=== PATIENT | female | born 1990 | race Caucasian/White ===

== ENCOUNTER 2016-08-13 02:32 | Emergency (ER) | payer BC, OTHER ==
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
[2016-08-13 02:51] LABS: Hematocrit 35.6 % (37.0-47.0); Hemoglobin 12.2 gm/dL (12.5-16.0); Mean Cell Volume 88.6 fl (78-100); Mean Corpuscular Hemoglobin 30.3 pg (27-31); Mean Corpuscular Hgb Conc 34.3 g/dl (32-36); Mean Platelet Volume 11.1 fl (6.0-9.5); Platelet Count 232 K/mm3 (150-450); Red Blood Count 4.02 M/mm3 (4.2-5.4); Red Cell Distribution Width 12.5 % (11.5-14.0); White Blood Count 9.6 K/mm3 (4.0-10.5)
[2016-08-13 03:00] LABS: Albumin * 2.9 gm/dl (3.4-5.0); Anion Gap 14.5 mmol/L (6.8-13.8); BUN/Creatinine Ratio 17.2 (9.0-21.6); Bilirubin, Total 0.2 mg/dL (0.0-1.1); Ca. Corrected For Albumin 9.4 mg/dL (8.4-10.2); Calcium * 8.8 mg/dL (7.9-10.9); Carbon Dioxide 24.1 mmol/L (24-32.6); Potassium 3.6 mmol/L (3.4-4.6); Total Protein 6.9 gm/dL (6.2-8.2)
[2016-08-13 03:59] LABS: Urine Bilirubin Negative (NEGATIVE); Urine Blood Negative /ul (NEGATIVE); Urine Ketone Negative (NEGATIVE); Urine Nitrite Negative (NEGATIVE); Urine Protein Negative (NEGATIVE); Urine Specific Gravity <=1.005 SP.GR. (1.005-1.010); Urine Urobilinogen Normal (NORMAL)
[2016-08-13 04:18] LABS: Urine Appearance Clear; Urine Bacteria 1+; Urine Color Pale Yellow; Urine RBC None Seen /hpf (0-5); Urine WBC None Seen /hpf (0-5)
--- OUTSIDE RECORDS SUMMARY | 2016-08-13 04:46 | XMS REPORT | Continuity of Care Document ---
:1990 Author Organization [facility] ([facility]) Address [place] [address] Phone [phone] Care Team Providers Name Role Phone Mitzi Becerra Primary Care Provider [phone] Source Comments This disclosure is being made pursuant to the Care Everywhere program, applicable federal and state laws, and may not contain all informaitonavailable regarding this patient.[facility] ([facility]) Active Allergies and Adverse Reactions Allergen Noted Date Severity Reactions Comments Amoxicillin 07/13/2014 Nausea & Vomiting Cotrim Double-Strength 07/13/2014 Nausea & Vomiting Lactose 07/13/2014 Nausea & Vomiting Current Medications Prescription Sig. Disp. Refills Start Date End Date Status norethindrone-ethinyl Take 1 Tab by Active estradiol triphasic (NECON mouth daily. ) tablet Active Problems Not on file Social History Tobacco Use Types Packs/Day Years Used Date Never Smoker Smokeless Tobacco: Never Used Alcohol Use Drinks/Week oz/Week Comments Yes 1 Glasses of wine Last Filed Vital Signs Vital Sign Reading Time Taken Blood Pressure 119/68 07/13/2014 10:19 AM CDT Pulse 76 07/13/2014 10:19 AM CDT Temperature - - Respiratory Rate - - Height 1.676 m (5' 5.98") 07/13/2014 10:19 AM CDT Weight 91.6 kg (201 lb 15.1 oz) 07/13/2014 10:19 AM CDT Body Mass Index 32.61 07/13/2014 10:19 AM CDT Oxygen Saturation - - Plan of Care Health Maintenance Due Date Last Done Comments Hepatitis B Vaccine (1 of 3 - Primary Series) 1990 HPV Vaccine (1 of 3 - Female/Unknown 3 Dose Series) 2000 Tdap Vaccine 2000 Cervical Cancer Screening 07/28/2007 Lipid Disorder Screening 07/28/2007 MMR Vaccine 07/28/2007 Td Vaccine 07/28/2007 Varicella Vaccine (1 of 2 - Adult - No Evidence of 07/28/2007 Immunity) Influenza Vaccine: Seasonal (#1) 10/18/2015 Results from Last 3 Months Not on file
[2016-08-13 04:53] VITALS: BP 131/55
== END 2016-08-13 04:51 | disposition home or self-care (01) ==
LOC: ER 02:32
DX: R07.89 Other chest pain (principal); M79.652 Pain in left thigh; T14.8 Other injury of unspecified body region; V49.40XA Driver injured in collision with unspecified motor vehicles in traffic accident, initial encounter; Y92.410 Unspecified street and highway as the place of occurrence of the external cause

== ENCOUNTER 2019-03-15 11:06 | Inpatient (IN) ==
[2019-03-15] MEDS ORDERED: RINGER'S SOLUTION,LACTATED 1,000 ML IV ONE (12:00)
[2019-03-15] MEDS ORDERED: ONDANSETRON HCL/PF 2 MG/ML VIAL ONE (13:16)
[2019-03-15] MEDS ORDERED: NEOSTIGMINE METHYLSULFATE 1 MG/ML VIAL ONE (13:16)
[2019-03-15] MEDS ORDERED: MIDAZOLAM HCL/PF 5 MG/ML VIAL ONE (13:16)
[2019-03-15] MEDS ORDERED: fentaNYL CITRATE/PF 50 MCG/ML AMPUL ONE (13:16)
[2019-03-15] MEDS ORDERED: PROPOFOL VIAL IV ONE (13:17)
[2019-03-15] MEDS ORDERED: KETOROLAC TROMETHAMINE 30 MG/ML VIAL ONE (13:17)
[2019-03-15] MEDS ORDERED: BUPIVACAINE HCL/EPINEPHRINE 50 ML VIAL ONE (13:17)
[2019-03-15] MEDS ORDERED: GLYCOPYRROLATE 0.2 MG/ML VIAL ONE (13:17)
[2019-03-15] MEDS ORDERED: RINGER'S SOLUTION,LACTATED 1,000 ML IV PRN (13:20)
[2019-03-15] MEDS ORDERED: DEXTROSE 5% IV ONE ×2 (13:20)
[2019-03-15] MEDS ORDERED: WATER IV ONE ×2 (13:20)
[2019-03-15] MEDS ORDERED: CLINDAMYCIN PHOSPHATE 900 MG in DEXTROSE 5 % IN WATER 100 ML IV ONE ×2 (13:20)
[2019-03-15] MEDS ORDERED: GENTAMICIN SULFATE IV ONE ×2 (13:20)
[2019-03-15] MEDS ORDERED: OXYTOCIN 20 UNITS in RINGER'S SOLUTION,LACTATED 1,000 ML IV ONE (13:20)
[2019-03-15] MEDS ORDERED: diphenhydrAMINE HCL 25 MG CAPSULE PO PRN (13:25)
[2019-03-15] MEDS ORDERED: HYDROcodone/ACETAMINOPHEN 1 EACH TABLET PO PRN (13:25)
[2019-03-15] MEDS ORDERED: ONDANSETRON HCL/PF 2 MG/ML VIAL IV PRN (13:25)
[2019-03-15] MEDS ORDERED: SENNOSIDES 8.6 MG TABLET PO PRN (13:25)
[2019-03-15] MEDS ORDERED: BISACODYL 10 MG SUPP.RECT RC PRN (13:25)
[2019-03-15] MEDS ORDERED: KETOROLAC TROMETHAMINE 30 MG/ML VIAL IV PRN (13:25)
--- NOTE | 2019-03-15 13:26 | ANES ---
Anesthesia Pre Procedure Eval Vitals/Labs: Last Vital Signs Temp 36.9 C 03/15/19 12:01 Pulse 77 03/15/19 12:01 Resp 18 03/15/19 12:01 BP 122/73 03/15/19 12:01 Pulse Ox 99 03/15/19 12:01 HOME MEDICATIONS STY15-SE 400 mcg-om3 35 mg-dha 25 mg-epa 5 mg-fish oil chewable tablet 2 tab PO DAILY tab 10/08/18 [Last Taken Unknown] ascorbate calcium (vitamin C) 500 mg tablet 500 mg PO DAILY 11/20/18 [Last Taken Unknown] aspirin 81 mg tablet,delayed release 81 mg PO DAILY 11/20/18 [Last Taken Unk nown] magnesium oxide 500 mg tablet 500 mg PO DAILY 11/20/18 [Last Taken Unknown] potassium gluconate 595 mg (99 mg) tablet 595 mg PO DAILY 11/20/18 [Last Taken Unknown] calcium carbonate 500 mg calcium (1,250 mg) tablet 500 mg PO DAILY 12/31/18 [Last Taken Unknown] ferrous sulfate 325 mg (65 mg iron) tablet 325 mg PO DAILY #30 tab 01/01/19 [Last Taken Unknown] Allergies/Adverse Reactions: Allergies Allergy/AdvReac Type Severity Reaction Status Date / Time erythromycin base Allergy Hives Verified 03/15/19 12:01 red dye Allergy Rash Verified 03/15/19 12:01 amoxicillin AdvReac N/V Verified 03/15/19 12:01 latex AdvReac Verified 03/15/19 12:01 - Planned Procedure Planned Procedure: Repeat C/S Medication List Reviewed:: Yes Allergies Verified: Yes Medical History (Last Reviewed 03/15/19 @ 13:25 by Fercho Jim CRNA) Class 2 obesity due to excess calories with body mass index (BMI) of 38.0 to 38.9 in adult (Chronic) Anxiety and depression (Inactive) no meds History of pre-eclampsia (Chronic) Severe, 37 wks Anemia Onset Date: 12/31/18 w/ Body piercing Onset Date: Unknown Eczema Onset Date: Unknown seasonal Obesity Onset Date: Unknown Tattoos Onset Date: Unknown Wears glasses Onset Date: Unknown & contacts Anxiety Onset Date: Unknown No medication since [facility] Depression Onset Date: Unknown No medication since 07/2017 Elective Onset Date: ~2010 x2 History of pre-eclampsia Onset Date: ~01/2017 Post depression Onset Date: ~03/2017 Shingles Onset Date: ~2008 Spontaneous Onset Date: Unknown Surgical History (Last Reviewed 03/15/19 @ 13:25 by Fercho Jim CRNA) Previous section (Chronic) x1, Arrest of descent History of dilation and curettage Onset Date: ~2010 x2 with elective - d/t hemorrhaging History of laparoscopic appendectomy Onset Date: 01/02/15 Previous section Onset Date: 01/23/17 Failed induction d/t failure to progress [place] teeth extracted Onset Date: ~2011 Family History (Last Reviewed 03/15/19 @ 13:25 by Fercho Jim CRNA) Mother Cancer Breast Father Diabetes CHF (congestive heart failure) Hypertension Hyperlipemia Grandmother Cancer Skin Glaucoma Grandfather COPD (chronic obstructive pulmonary disease) Glaucoma Grandmother CVA (cerebral vascular accident) Myocardial infarction CAD (coronary artery disease) - Family Anesthesia History Family History:: no untoward family reactions to anesthesia, no familial bleeding tendencies, no family history of clotting disorders, no family history of premature - Airway/Neck/Teeth Within Normal Limits:: Yes Teeth Condition: intact Mallampatti Score: 2 Thyromental (T-M) distance: > 6 cm Mandibulo Hyoid distance: > 3 cm - Respiratory Respiratory Physical: lungs clear Discussed smoking cessation including day of surgery: No Sleep Apnea currently treated: No Sleep Apnea by current assessment: No Discussed Risks/Treatment of FREDDIE: No - Cardiovascular Tolerate Activity: Good Heart Sounds: S1 & S2, Regular - Gastrointestinal NPO since: 6am - Anesthesia Assessment and Plan ASA Class: PS, II, E Anesthesia Type Plan: Block - Bilateral ultrasound guided TAP blocks for postop analgesia, Spinal
--- NOTE | 2019-03-15 13:40 | PN ---
Ynes Note - Interim Date: 03/15/19 Time: 13:28 Narrative: 03/15/19 13:28 The patient is a 28 year old at 38w 5d today who presented to labor and delivery reporting regular contractions approximately every 6 minutes. She denied vb or lof. Fetus is active. On the monitor the patient is jackelyn every 1-2 minutes. The patient received a one liter bolus of LR without any change in her contractions so will proceed with delivery. Proceed with repeat delivery. All risks, benef its, and alternatives of the procedure were explained to the patient and the patient consented to the procedure. FHT is cat 1 Type and screen ordered The patient is allergic to amoxicillin and thus will do clindamycin and gentamicin for antibiotic prophylaxis. Baseline creatinine ordered given gentamicin administration. Normal vital signs.
--- NOTE | 2019-03-15 15:19 | ANES ---
Anesthesia Procedure Note Procedure Note: ANESTHESIA PROCEDURE NOTE Date of Procedure: 03/15/2019. Time of procedure: 1510. Performed by: Fercho Jim CRNA Traffic Controller Cable: None. Preprocedure diagnosis: Repeat . Post procedure diagnosis: Same. Procedure: Bilateral ultrasound-guided transversus abdominis plane block for postop analgesia. Indications: The patient is a 28-year-old female post section. Findings: See below. Details of the procedure: ChloraPrep was used on the patient's abdomen and the procedure was performed under sterile technique. The right abdominal fascial layer between the internal oblique muscle and the transversus abdominis muscles was identified under ultrasound guidance. A 21-gauge 4 inch block needle was inserted under ultrasound guidance to the target fascial plane. 15 mL's of 0.5% bupivacaine plus epinephrine 1:200,000 was injected after negative aspiration for blood. The needle was removed intact and the procedure was then repeated at the left side. No complications were noted. The images were retained in the hospital medical database. EBL: Minimal. Fluids: N/A. Specimen: N/A. Post procedure condition: The patient tolerated the procedure well. No complications were noted. Thank you for this consultation. Fecrho Jim CRNA
--- NOTE | 2019-03-15 15:19 | ANES ---
Post Anesthesia Discharge - Transfer of Care Transfer of Care handoff given to nurse: Yes - Discharge from PACU Discharge from PACU when meets criteria: Yes - Discharge to ASU Discharge to ASU-no complications/pt stable: Yes
--- NOTE | 2019-03-15 15:20 | ANES ---
Post Anesthesia Assessment - Vital Signs Vitals: Last Vital Signs Temp 36.7 C 03/15/19 15:05 Pulse 94 03/15/19 15:15 Resp 16 03/15/19 15:15 BP 111/51 03/15/19 15:15 Pulse Ox 99 03/15/19 15:15 Airway Patency: Normal - Mental Status Level Of Consciousness: Awake - Pain Level Pain Score: 0 - N/V Assessment Nausea/Vomiting Presence: None Dehydration:: No
--- NOTE | 2019-03-15 15:23 | OR ---
Operative Report - Dictated Report Narrative: Date of delivery: 03/15/2019 Time of delivery: 1428 Gender: female weight: 3777 grams APGARS: 9/9 Preoperative diagnosis: IUP at 38w 5d, labor, Rh negative, obesity, history of depression and anxiety, history of pre-eclampsia Postoperative diagnosis: IUP at 38w 5d, labor, Rh negative, obesity, history of depression and anxiety, history of pre-eclampsia, meconium-stained amniotic fluid (light meconium), thin lower uterine segment particularly on the right side, nuchal cord, polyhydramnios Procedure: repeat delivery Surgeon: Dr. Spicer Anesthesia: spinal Anesthesiologist: Fercho Jim CRNA Description of the procedure: The patient was taken to the operating room where spinal anesthesia was induced. She was then prepped and draped in the supine position in the standard surgical fashion. A time out was performed. Prophylactic antibiotics were administered: clindamycin and gentamicin. A Pfannestiel skin incision was made following the same length of the previous incision. The incision was carried through the subcutaneous tissue. The fascia was incised in the midline. The fascial incision was extended sharply. The fascia was tented up and from the underlying rectus muscles. Bleeding from one of the vessels piercing the fascia ensued and a figure of eight suture was placed for hemostasis. Hemostasis was adequate. An incisional hernia of the omentum was noted and this was repaired. The peritoneum was entered during electrocautery due to adhesions. The peritoneal incision was extended bluntly. A large Zev retractor was placed. The uterus was examined and the lower uterine segment was noted to be thin especially on the right side. The lower segment was incised in a low transverse fashion. The uterine incision was extended bluntly. The membranes were ruptured. The head delivered on its own. A loose nuchal cord was noted and it was reduced prior to delivering the shoulders as well as the rest of the infant. Light meconium was noted. A large amount of amniotic fluid was noted consistent with polyhydramnios. The infant delivered without any difficulty. The cord was clamped and cut and the was handed off to the pediatric staff. The placenta was delivered by expression and appeared intact. The uterus was cleared of all clots and debris. The uterine incision was closed with a single layer of 0-vicryl. Hemostasis was adequate. The Zev retractor was removed from the abdomen. The uterine incision was reinspected and appeared hemostatic. The subfascial tissues as well as the rectus muscles were inspected and these appeared hemostatic. The fascia was closed with 1-0 vicryl. The subcutaneous tissue was irrigated and it was hemostatic. The skin was closed with 3-0 monocryl on a Tyree needle. [place] regan was placed over the incision. A dressing was placed over the incision which is to remain in place for 24 hours postoperatively. All sponge, lap, and needle counts were correct. The patient tolerated the procedure well. She was transferred to the recovery room in stable condition. EBL: 500 mL Complications: none Specimens: placenta to pathology History for MU Definition: * The number of deliveries resulting in a live the patient experienced prior to current hospitalization * The previous delivery of live twins or any live multiple gestation is considered one live event. *If primagravida or nulliparous is documented select zero for the number of previous live births. Live Events: 1
[2019-03-15 17:21] LABS: Cocaine Ur Negative (NEGATIVE); Urine Barbiturate Negative (NEGATIVE); Urine Benzodiazepines Negative (NEGATIVE); Urine Opiates Negative (NEGATIVE); Urine PCP Negative (NEGATIVE); Urine THC Negative (NEGATIVE)
[2019-03-15] MEDS: HYDROcodone/ACETAMINOPHEN 1 EACH TABLET PO PRN (20:31)
[2019-03-15] MEDS: DOCUSATE SODIUM 100 MG CAPSULE PO SCH (20:33)
[2019-03-16] MEDS: HYDROcodone/ACETAMINOPHEN 1 EACH TABLET PO PRN ×5 (01:25→21:18)
[2019-03-16] MEDS: IBUPROFEN 800 MG TABLET PO PRN ×3 (01:26→16:53)
[2019-03-16] MEDS: DOCUSATE SODIUM 100 MG CAPSULE PO SCH ×2 (10:25→21:18)
[2019-03-16] MEDS: PRENATAL VITS96/IRON FUM/FOLIC 1 TAB TABLET PO SCH (10:25)
--- NOTE | 2019-03-16 10:52 | PN ---
Subjective - Date and Time Seen Date: 03/16/19 Time: 10:51 Subjective Narrative: Patient without complaints Objective Objective Narrative: See vital signs - Review of Systems Generalized/Overall Review: Reports: No Symptoms Reported Misc: All systems neg except as marked - Vitals Vitals: Last Vital Signs Temp 35.6 C L 03/16/19 07:08 Pulse 70 03/16/19 07:08 Resp 18 03/16/19 07:08 BP 122/75 03/16/19 07:08 Pulse Ox 97 03/16/19 07:08 - Exam Constitutional: Present: Alert, Oriented x3, Cooperative, No distress Abdomen: Present: soft, nontender, nondistended - dressing c/d/i Extremity: Present: non-tender, no calf tenderness Skin Exam: Present: normal color, warm/dry, no cyanosis Appearance: Present: appropriate appearance Eye contact: Present: cooperative Thoughts: Present: normal thought pattern Cauti Physician Documentation - Urinary Catheter Management Urethral (May) Urethral Indwelling: No Date of Insertion: 03/15/19 Time of Insertion: 13:55 Assessment/Plan Plan Narrative: POD 1 s/p repeat delivery Doing well Discharge POD 3
[2019-03-17] MEDS: IBUPROFEN 800 MG TABLET PO PRN ×3 (02:40→18:34)
[2019-03-17] MEDS: SIMETHICONE 80 MG TAB.CHEW PO PRN ×4 (02:40→19:26)
[2019-03-17] MEDS: HYDROcodone/ACETAMINOPHEN 1 EACH TABLET PO PRN ×4 (02:41→18:34)
[2019-03-17] MEDS: DOCUSATE SODIUM 100 MG CAPSULE PO SCH ×2 (09:00→21:22)
[2019-03-17] MEDS: PRENATAL VITS96/IRON FUM/FOLIC 1 TAB TABLET PO SCH ×2 (09:00→09:06)
--- NOTE | 2019-03-17 13:08 | PN ---
Subjective - Date and Time Seen Date: 03/17/19 Time: 13:06 Subjective Narrative: Patient without complaints Objective Objective Narrative: See vital signs - Review of Systems Generalized/Overall Review: Reports: No Symptoms Reported Misc: All systems neg except as marked - Vitals Vitals: Last Vital Signs Temp 36.4 C 03/17/19 09:26 Pulse 69 03/17/19 09:26 Resp 18 03/17/19 09:26 BP 131/86 03/17/19 09:26 Pulse Ox 98 03/17/19 09:26 - Exam Constitutional: Present: Alert, Oriented x3, Cooperative Abdomen: Present: soft, nontender, nondistended - dressing c/d/i Extremity: Present: non-tender, no calf tenderness Skin Exam: Present: normal color, warm/dry, no cyanosis Appearance: Present: appropriate appearance Eye contact: Present: cooperative Thoughts: Present: normal thought pattern Cauti Physician Documentation - Urinary Catheter Management Urethral (May) Urethral Indwelling: No Date of Insertion: 03/15/19 Time of Insertion: 13:55 Assessment/Plan Plan Narrative: POD 2 s/p repeat delivery Doing well Discharge home tomorrow
[2019-03-18] MEDS: SIMETHICONE 80 MG TAB.CHEW PO PRN ×2 (03:09→06:57)
[2019-03-18 07:28] VITALS: BP 133/86
[2019-03-18] MEDS: PRENATAL VITS96/IRON FUM/FOLIC 1 TAB TABLET PO SCH (08:58)
[2019-03-18] MEDS: DOCUSATE SODIUM 100 MG CAPSULE PO SCH (08:59)
[2019-03-18] MEDS: IBUPROFEN 800 MG TABLET PO PRN (08:59)
--- NOTE | 2019-03-18 09:48 | PN ---
Subjective - Date and Time Seen Date: 03/18/19 Time: 09:47 Subjective Narrative: Patient without complaints Objective Objective Narrative: See vital signs - Review of Systems Generalized/Overall Review: Reports: No Symptoms Reported Misc: All systems neg except as marked - Vitals Vitals: Last Vital Signs Temp 36.6 C 03/18/19 06:45 Pulse 61 03/18/19 06:45 Resp 18 03/18/19 06:45 BP 133/86 03/18/19 06:45 Pulse Ox 98 03/18/19 06:45 - Exam Constitutional: Present: Alert, Oriented x3, Cooperative, No distress Abdomen: Present: soft, nontender, nondistended - incision c/d/i Extremity: Present: non-tender, no calf tenderness Skin Exam: Present: normal color, warm/dry, no cyanosis Appearance: Present: appropriate appearance Eye contact: Present: cooperative Thoughts: Present: normal thought pattern Cauti Physician Documentation - Urinary Catheter Management Urethral (May) Urethral Indwelling: No Date of Insertion: 03/15/19 Time of Insertion: 13:55 Assessment/Plan Plan Narrative: POD 3 s/p repeat delivery Doing well Discharge home Follow-up in 2 weeks for an incision check
== END 2019-03-18 11:53 | disposition home or self-care (01) | DRG 787 ==
LOC: OBCLINIC 11:06 → OB 12:46
PROVIDERS: ADMIT Obstetrics & Gynecology; ATTEND Obstetrics & Gynecology
CPT/HCPCS: 36415; 59025; 80307; 82565; 86850; 88307; J2405